=== PATIENT | female | born 1975 | race Asian ===

== ENCOUNTER 2019-05-13 16:55 | Inpatient (IN) | payer MEDICAID, OTHER ==
[~2019-05-13] VITALS: Ht 175.3 cm; Wt 129.4 kg
[2019-05-13] MEDS ORDERED: FURO40I IM (18:32)
[2019-05-13] MEDS ORDERED: CARV3 PO (18:32)
[2019-05-13] MEDS ORDERED: DULO20CA30 PO (18:32)
[2019-05-13] MEDS ORDERED: METF-960 PO (18:32)
[2019-05-13 18:42] LABS: GLUCOSE,POINT OF CARE 360 MG/DL (70-110)
[2019-05-13 19:35] LABS: BASOPHILS % (AUTO) 0.8 % (0.0-2.0); EOSINOPHILS % (AUTO) 1.9 % (1.0-6.0); HEMATOCRIT 32.8 % (36-46); HEMOGLOBIN 11.1 g/dL (12.0-16.0); LYMPHOCYTES # (AUTO) 1.4 K/uL (1.0-4.8); LYMPHOCYTES % (AUTO) 20.2 % (22.0-44.0); MEAN CORPUSCULAR HEMOGLOBIN 29.5 pg (26.0-34.0); MEAN CORPUSCULAR HGB CONC 33.7 G/dL (31.0-37.0); MEAN CORPUSCULAR VOLUME 88 fL (80-100); MONOCYTES # (AUTO) 0.5 K/uL (0.1-1.0); MONOCYTES % (AUTO) 7.2 % (2.0-9.0); NEUTROPHILS # (AUTO) 4.9 K/uL (1.8-7.7); NEUTROPHILS % (AUTO) 69.9 % (40.0-70.0); PLATELET COUNT (AUTO) 234 K/uL (150-450); RED BLOOD CELL COUNT(AUTO) 3.74 MIL/uL (4.00-5.20); RED CELL DISTRIBUTION WIDTH 14.1 % (11.5-14.5)
[2019-05-13] MEDS ORDERED: ZOLPIDEM TARTRATE 10 MG TABLET PO PRN (19:45)
[2019-05-13] MEDS ORDERED: LORazepam 2 MG TABLET PO PRN (19:45)
[2019-05-13] MEDS ORDERED: HALOPERIDOL 5 MG TABLET PO PRN (19:45)
[2019-05-13 20:06] LABS: ALANINE AMINOTRANSFERASE 22 U/L (12-78); ALBUMIN 2.4 g/dL (3.4-5.0); ALKALINE PHOSPHATASE 77 U/L (46-116); ANION GAP 7 mmol/L (8-16); ASPARTATE AMINOTRANSFERASE 15 U/L (15-37); BILIRUBIN,TOTAL 0.2 mg/dL (0.1-1.0); CALCIUM, TOTAL 8.2 mg/dL (8.8-10.5); CARBON DIOXIDE 26 mmol/L (22-29); CHLORIDE 101 mmol/L (98-107); CREATININE 1.27 mg/dL (0.60-1.30); GLOMERULAR FILTR. RATE CALC 46 mL/min (>60); POTASSIUM 4.1 mmol/L (3.5-5.1); SODIUM SERUM 134 mmol/L (136-145); TOTAL PROTEIN, SERUM 6.4 g/dL (6.4-8.2); UREA NITROGEN, BLOOD 25 mg/dL (7-18)
[2019-05-13 20:10] LABS: GLUCOSE,RANDOM 411 mg/dL (70-110)
[2019-05-13] MEDS ORDERED: MetFORMIN HCL 500 MG TABLET PO ONE (20:15)
[2019-05-13 20:22] LABS: GLUCOSE,POINT OF CARE 361 MG/DL (70-110)
[2019-05-14 00:09] LABS: GLUCOSE,POINT OF CARE 269 MG/DL (70-110)
[2019-05-14 01:40] VITALS: BP 147/86
[2019-05-14 01:51] VITALS: BP 147/86
[2019-05-14] MEDS ORDERED: INFLUENZA VIRUS VACCINE QVS 2019-20 (3YR+)/PF 60 MCG/0.5 ML SYRINGE IM ONE (02:30)
[2019-05-14 06:06] LABS: GLUCOMETER DEV NAME(LOC) 3EX.; GLUCOSE,POINT OF CARE 298 MG/DL (70-110)
[2019-05-14] MEDS ORDERED: DEXTROSE 50%-WATER 25 GM/50 ML SYRINGE IVP PRN (07:15)
[2019-05-14 09:45] LABS: CHOL/HDL RATIO 4.3 (3.9-5.7)
[2019-05-14] MEDS: INSULIN LISPRO 100 UNITS/ML SQ PRN ×2 (11:31→17:53)
[2019-05-14] MEDS: DULoxetine HCL 30 MG CAPSULE PO SCH (11:32)
[2019-05-14 11:35] LABS: GLUCOMETER DEV NAME(LOC) 3EX.; GLUCOSE,POINT OF CARE 388 MG/DL (70-110)
[2019-05-14 13:48] VITALS: BP 151/72
[2019-05-14 14:31] LABS: GLUCOMETER DEV NAME(LOC) 3EX.; GLUCOSE,POINT OF CARE 254 MG/DL (70-110)
[2019-05-14] MEDS ORDERED: PETROLATUM,WHITE 28 GM JELLY TP PRN (15:45)
[2019-05-14] MEDS ORDERED: DOCUSATE SODIUM 100 MG CAPSULE PO PRN (15:45)
[2019-05-14] MEDS ORDERED: IBUPROFEN 600 MG TABLET PO PRN (15:45)
[2019-05-14] MEDS ORDERED: ONDANSETRON HCL 4 MG TABLET PO PRN (15:45)
[2019-05-14] MEDS ORDERED: OMEPRAZOLE 20 MG CAPSULE PO PRN (15:45)
[2019-05-14] MEDS ORDERED: BENZOCAINE/MENTHOL LOZENGE MM PRN (15:45)
[2019-05-14] MEDS ORDERED: CloNIDine HCL 0.1 MG TABLET PO PRN (15:45)
[2019-05-14] MEDS ORDERED: MAGNESIUM HYDROXIDE SUSPENSION 30 ML UDCUP PO PRN (15:45)
[2019-05-14] MEDS ORDERED: ALBUTEROL SULFATE HFA 90 MCG/PUFF 8 GM INHALER IH PRN (15:45)
[2019-05-14] MEDS ORDERED: MAG HYDROX/AL HYDROX/SIMETH ES 30 ML SUSPENSION UDCUP PO PRN (15:45)
[2019-05-14] MEDS ORDERED: BACITRACIN 28.4 GM OINTMENT TP PRN (15:45)
[2019-05-14] MEDS ORDERED: ACETAMINOPHEN 325 MG TABLET PO PRN (15:45)
[2019-05-14] MEDS ORDERED: LOPERAMIDE HCL 2 MG CAPSULE PO PRN (15:45)
[2019-05-14 16:54] LABS: GLUCOMETER DEV NAME(LOC) 3EX.; GLUCOSE,POINT OF CARE 278 MG/DL (70-110)
[2019-05-14] MEDS ORDERED: CARVEDILOL 25 MG TABLET PO SCH (17:00)
[2019-05-14] MEDS ORDERED: MetFORMIN HCL 500 MG TABLET PO SCH ×2 (17:30→17:45)
[2019-05-14] MEDS: ASPIRIN 81 MG CHEWABLE TABLET PO SCH ×2 (17:45→18:50)
[2019-05-14] MEDS: NIFEdipine 60 MG ER TABLET PO SCH (17:45)
[2019-05-14] MEDS ORDERED: CARVEDILOL 12.5 MG TABLET PO SCH (17:45)
[2019-05-14] MEDS: VALSARTAN 160 MG TABLET PO SCH (18:48)
[2019-05-14] MEDS: CLOPIDOGREL BISULFATE 75 MG TABLET PO SCH (18:48)
[2019-05-14] MEDS: MONTELUKAST SODIUM 10 MG TABLET PO SCH (18:48)
[2019-05-14 18:50] VITALS: BP 142/76
[2019-05-14] MEDS: GABAPENTIN 300 MG CAPSULE PO SCH (18:50)
[2019-05-14] MEDS: FUROSEMIDE 40 MG TABLET PO SCH (18:50)
[2019-05-14] MEDS: ATORVASTATIN CALCIUM 40 MG TABLET PO SCH (19:06)
[2019-05-14] MEDS: EZETIMIBE 10 MG TABLET PO SCH (20:49)
[2019-05-14 21:37] LABS: GLUCOMETER DEV NAME(LOC) 3EX.; GLUCOSE,POINT OF CARE 379 MG/DL (70-110)
[2019-05-15 05:37] LABS: GLUCOMETER DEV NAME(LOC) 3EX.; GLUCOSE,POINT OF CARE 284 MG/DL (70-110)
[2019-05-15] MEDS: MetFORMIN HCL 500 MG TABLET PO SCH ×2 (07:03→16:55)
[2019-05-15] MEDS: INSULIN LISPRO 100 UNITS/ML SQ PRN ×4 (07:05→22:08)
[2019-05-15] MEDS ORDERED: MetFORMIN HCL 500 MG TABLET PO SCH (07:30)
[2019-05-15 08:00] VITALS: BP 159/92
[2019-05-15] MEDS: GABAPENTIN 300 MG CAPSULE PO SCH ×3 (08:27→16:55)
[2019-05-15] MEDS: ASPIRIN 81 MG CHEWABLE TABLET PO SCH (08:27)
[2019-05-15] MEDS: ATORVASTATIN CALCIUM 40 MG TABLET PO SCH (08:27)
[2019-05-15] MEDS: NIFEdipine 60 MG ER TABLET PO SCH (08:28)
[2019-05-15] MEDS: MONTELUKAST SODIUM 10 MG TABLET PO SCH (08:28)
[2019-05-15] MEDS: CLOPIDOGREL BISULFATE 75 MG TABLET PO SCH (08:28)
[2019-05-15] MEDS: DULoxetine HCL 30 MG CAPSULE PO SCH (08:29)
[2019-05-15] MEDS: FUROSEMIDE 40 MG TABLET PO SCH (08:29)
[2019-05-15] MEDS: VALSARTAN 160 MG TABLET PO SCH (08:29)
[2019-05-15] MEDS: CARVEDILOL 12.5 MG TABLET PO SCH (08:29)
[2019-05-15 11:41] LABS: GLUCOMETER DEV NAME(LOC) 3EX.; GLUCOSE,POINT OF CARE 285 MG/DL (70-110)
[2019-05-15 17:32] LABS: GLUCOMETER DEV NAME(LOC) 3EX.; GLUCOSE,POINT OF CARE 264 MG/DL (70-110)
[2019-05-15] MEDS: EZETIMIBE 10 MG TABLET PO SCH (20:58)
[2019-05-15 21:47] VITALS: BP 130/64
[2019-05-15 23:40] LABS: GLUCOMETER DEV NAME(LOC) 3EX.; GLUCOSE,POINT OF CARE 200 MG/DL (70-110)
[2019-05-16 05:22] VITALS: BP 132/62
[2019-05-16 05:29] LABS: GLUCOMETER DEV NAME(LOC) 3EX.; GLUCOSE,POINT OF CARE 249 MG/DL (70-110)
[2019-05-16] MEDS: MetFORMIN HCL 500 MG TABLET PO SCH ×2 (06:45→17:22)
[2019-05-16] MEDS: INSULIN LISPRO 100 UNITS/ML SQ PRN ×4 (06:46→22:29)
[2019-05-16 08:53] VITALS: BP 114/61
[2019-05-16] MEDS: VALSARTAN 160 MG TABLET PO SCH (10:01)
[2019-05-16] MEDS: CARVEDILOL 12.5 MG TABLET PO SCH (10:02)
[2019-05-16] MEDS: GABAPENTIN 300 MG CAPSULE PO SCH ×3 (10:02→16:24)
[2019-05-16] MEDS: NIFEdipine 60 MG ER TABLET PO SCH (10:02)
[2019-05-16] MEDS: ATORVASTATIN CALCIUM 40 MG TABLET PO SCH (10:02)
[2019-05-16] MEDS: ASPIRIN 81 MG CHEWABLE TABLET PO SCH (10:02)
[2019-05-16] MEDS: DULoxetine HCL 30 MG CAPSULE PO SCH (10:02)
[2019-05-16] MEDS: FUROSEMIDE 40 MG TABLET PO SCH (10:02)
[2019-05-16] MEDS: MONTELUKAST SODIUM 10 MG TABLET PO SCH (10:02)
[2019-05-16] MEDS: CLOPIDOGREL BISULFATE 75 MG TABLET PO SCH (11:43)
[2019-05-16 11:55] LABS: GLUCOMETER DEV NAME(LOC) 3EX.; GLUCOSE,POINT OF CARE 191 MG/DL (70-110)
[2019-05-16 17:19] LABS: GLUCOMETER DEV NAME(LOC) 3EX.; GLUCOSE,POINT OF CARE 240 MG/DL (70-110)
[2019-05-16 20:02] LABS: GLUCOMETER DEV NAME(LOC) 3EX.; GLUCOSE,POINT OF CARE 258 MG/DL (70-110)
[2019-05-16 20:22] VITALS: BP 136/67
[2019-05-16] MEDS: EZETIMIBE 10 MG TABLET PO SCH (21:00)
[2019-05-16 21:39] LABS: GLUCOMETER DEV NAME(LOC) 3EX.; GLUCOSE,POINT OF CARE 203 MG/DL (70-110)
[2019-05-17 05:44] LABS: GLUCOMETER DEV NAME(LOC) 3EX.; GLUCOSE,POINT OF CARE 184 MG/DL (70-110)
[2019-05-17] MEDS: MetFORMIN HCL 500 MG TABLET PO SCH ×2 (06:50→16:45)
[2019-05-17] MEDS: INSULIN LISPRO 100 UNITS/ML SQ PRN ×4 (07:02→21:04)
[2019-05-17 08:47] VITALS: BP 122/60
[2019-05-17] MEDS: ASPIRIN 81 MG CHEWABLE TABLET PO SCH (09:00)
[2019-05-17] MEDS: GABAPENTIN 300 MG CAPSULE PO SCH ×3 (09:04→16:46)
[2019-05-17] MEDS: ATORVASTATIN CALCIUM 40 MG TABLET PO SCH (09:04)
[2019-05-17] MEDS: FUROSEMIDE 40 MG TABLET PO SCH (09:05)
[2019-05-17] MEDS: CARVEDILOL 12.5 MG TABLET PO SCH (09:05)
[2019-05-17] MEDS: DULoxetine HCL 30 MG CAPSULE PO SCH (09:05)
[2019-05-17] MEDS: VALSARTAN 160 MG TABLET PO SCH (09:06)
[2019-05-17] MEDS: MONTELUKAST SODIUM 10 MG TABLET PO SCH (09:06)
[2019-05-17] MEDS: CLOPIDOGREL BISULFATE 75 MG TABLET PO SCH (09:06)
[2019-05-17] MEDS: NIFEdipine 60 MG ER TABLET PO SCH (09:06)
[2019-05-17 15:13] LABS: GLUCOMETER DEV NAME(LOC) 3EX.; GLUCOSE,POINT OF CARE 173 MG/DL (70-110)
[2019-05-17 16:00] VITALS: BP 141/69
[2019-05-17 17:07] LABS: GLUCOMETER DEV NAME(LOC) 3EX.; GLUCOSE,POINT OF CARE 210 MG/DL (70-110)
[2019-05-17] MEDS: EZETIMIBE 10 MG TABLET PO SCH (20:31)
[2019-05-17 20:49] LABS: GLUCOMETER DEV NAME(LOC) 3EX.; GLUCOSE,POINT OF CARE 164 MG/DL (70-110)
[2019-05-18 05:44] LABS: GLUCOMETER DEV NAME(LOC) 3EX.; GLUCOSE,POINT OF CARE 178 MG/DL (70-110)
[2019-05-18] MEDS: MetFORMIN HCL 500 MG TABLET PO SCH (06:57)
[2019-05-18] MEDS: INSULIN LISPRO 100 UNITS/ML SQ PRN ×2 (07:00→11:47)
[2019-05-18 08:41] VITALS: BP 141/78
[2019-05-18] MEDS: ASPIRIN 81 MG CHEWABLE TABLET PO SCH (09:00)
[2019-05-18] MEDS: DULoxetine HCL 30 MG CAPSULE PO SCH (09:37)
[2019-05-18] MEDS: GABAPENTIN 300 MG CAPSULE PO SCH ×2 (09:37→13:27)
[2019-05-18] MEDS: ATORVASTATIN CALCIUM 40 MG TABLET PO SCH (09:37)
[2019-05-18] MEDS: FUROSEMIDE 40 MG TABLET PO SCH (09:38)
[2019-05-18] MEDS: MONTELUKAST SODIUM 10 MG TABLET PO SCH (09:38)
[2019-05-18] MEDS: NIFEdipine 60 MG ER TABLET PO SCH (09:38)
[2019-05-18] MEDS: CARVEDILOL 12.5 MG TABLET PO SCH (09:38)
[2019-05-18] MEDS: VALSARTAN 160 MG TABLET PO SCH (09:38)
[2019-05-18] MEDS: CLOPIDOGREL BISULFATE 75 MG TABLET PO SCH (09:38)
[2019-05-18] MEDS ORDERED: DULO30CA2 PO (10:19)
[2019-05-18] MEDS ORDERED: GABA-531 PO (10:19)
[2019-05-18] MEDS ORDERED: CARV12 PO (10:29)
[2019-05-18] MEDS ORDERED: FURO40 PO (10:29)
[2019-05-18] MEDS ORDERED: METF1000 PO (10:29)
[2019-05-18] MEDS ORDERED: EZET10TA13 PO (10:31)
[2019-05-18] MEDS ORDERED: VALS160T2 PO (10:31)
[2019-05-18] MEDS ORDERED: ATOR40TA28 PO (10:31)
[2019-05-18] MEDS ORDERED: CLOP75TA3 PO (10:31)
[2019-05-18] MEDS ORDERED: NIFE-39 PO (10:31)
[2019-05-18] MEDS ORDERED: MONT10TA21 PO (10:31)
[2019-05-18 11:57] LABS: GLUCOMETER DEV NAME(LOC) 3EX.; GLUCOSE,POINT OF CARE 139 MG/DL (70-110)
== END 2019-05-18 15:11 | disposition home or self-care (01) | DRG 881 ==
LOC: EMS 16:56 → 3EI 20:00
PROVIDERS: ADMIT Psychiatry & Neurology Child & Adolescent Psychiatry; ATTEND Psychiatry & Neurology Child & Adolescent Psychiatry
DX: F32.9 Major depressive disorder, single episode, unspecified (principal); I11.0 Hypertensive heart disease with heart failure; E11.65 Type 2 diabetes mellitus with hyperglycemia; Z68.41 Body mass index [BMI] 40.0-44.9, adult; R45.851 Suicidal ideations; I69.354 Hemiplegia and hemiparesis following cerebral infarction affecting left non-dominant side; I50.9 Heart failure, unspecified; E78.5 Hyperlipidemia, unspecified; E66.01 Morbid (severe) obesity due to excess calories; F41.9 Anxiety disorder, unspecified; R26.9 Unspecified abnormalities of gait and mobility; J44.9 Chronic obstructive pulmonary disease, unspecified; F17.210 Nicotine dependence, cigarettes, uncomplicated; Z91.5 Personal history of self-harm; Z79.82 Long term (current) use of aspirin; Z79.899 Other long term (current) drug therapy
CPT/HCPCS: G0480